=== PATIENT | male | born 1990 | race Caucasian/White ===

== ENCOUNTER → 2023-12-22 | Outpatient (CLI) | payer OTHER ==
[~2023-12-22] MED LIST: KETOROLAC10 MG PO
== END ==
LOC: RAD 10:04
DX: M79.671 Pain in right foot (principal); M25.561 Pain in right knee

== ENCOUNTER 2024-02-11 08:33 | Emergency (ER) | payer OTHER ==
[~2024-02-11] VITALS: Ht 177.8 cm; Wt 98.2 kg
[2024-02-11 09:50] VITALS: BP 135/94
[2024-02-11] MEDS ORDERED: PREDNISONE20 MG PO (10:14)
[2024-02-11] MEDS ORDERED: predniSONE 20 MG TAB PO ONE (10:15)
[2024-02-11 10:22] LABS: BASO # 0.02 K/mm3 (0.02-0.10); EOS # 0.06 K/mm3 (0.04-0.40); EOS % 1.1 % (0.0-4.0); HEMATOCRIT 48.1 % (42.0-52.0); HEMOGLOBIN 16.8 g/dL (13.5-18.0); LYMPH# 2.03 K/mm3 (1.50-4.00); MEAN CELL VOLUME 90 fl (78-100); MEAN CORPUSCULAR HEMOGLOBIN 32 pg (27-31); MEAN CORPUSCULAR HGB CONC 35 g/dL (33-37); MEAN PLATELET VOLUME 8.9 fl (7.4-10.4); MONO # 0.56 K/mm3 (0.20-0.80); NEU # 2.63 K/mm3 (1.40-6.50); PLATELET COUNT 208 K/mm3 (130-400); RED BLOOD COUNT 5.32 M/mm3 (4.20-5.60); RED CELL DISTRIBUTION WIDTH 12.1 % (11.5-14.5); WHITE BLOOD COUNT 5.3 K/mm3 (4.8-10.8)
[2024-02-11 10:32] LABS: ALBUMIN 4.4 g/dL (3.5-5.0); CALCIUM 10.1 mg/dL (8.3-10.5)
[2024-02-11 10:34] LABS: TOTAL PROTEIN 7.2 g/dL (6.4-8.3)
[2024-02-11 10:35] LABS: TOTAL BILIRUBIN 1.1 mg/dL (0.2-1.2)
== END 2024-02-11 10:30 | disposition home or self-care (01) ==
LOC: ED 08:33
PROVIDERS: Physician Assistant
DX: G51.0 Bell's palsy (principal)
CPT/HCPCS: J7512